=== PATIENT | male | born 1980 | race Caucasian/White ===

== ENCOUNTER 2024-04-30 17:39 | Emergency (ER) | payer BC, SELFPAY ==
--- NOTE | ~2024-04-30 | CT_ITS ---
CLINICAL HISTORY: R side flank pain, N V CT abdomen and pelvis without contrast Comparison: None Findings: No hydronephrosis. No right nephrolithiasis. Left nephrolithiasis is punctate. There is a 2 mm stone in the bladder. No consolidation at the lung bases. Unremarkable gallbladder. Hepatic steatosis. The other solid organs are normal. No bowel wall thickening or dilation. A normal appendix is identified. No aneurysm. Trace calcified atherosclerotic disease. No lymphadenopathy. No ascites. No acute fracture. 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 Impression: 2 mm stone in the bladder may have been recently passed. No hydronephrosis. This document has been electronically signed by: Veronika Melton MD on 04/30/2024 18:39:22
--- NOTE | 2024-04-30 17:40 | ED_ITS ---
HPI - General Adult General Chief complaint: Abdominal Pain Stated complaint: Pain on side Time Seen by Provider: 04/30/24 23:23 Related Data Previous Rx's ?Medication ?Instructions ?Recorded ketorolac 10 mg tablet 10 mg PO Q8H PRN pain #12 tabs 05/01/24 metformin 500 mg tablet 1,000 mg (2 x 500 mg) PO BID 1 05/01/24 month #120 tabs tamsulosin 0.4 mg capsule 0.4 mg PO DAILY #7 caps 05/01/24 Allergies Allergy/AdvReac Type Severity Reaction Status Date / Time No Known Allergies Allergy Verified 04/30/24 17:48 [No Known Allergies*] PMFSH Social History Social History Smoked in Last 30 Days: No Use of substances other than those prescribed or required for medical reasons: No Advance Directives: No Advance Directives Information Provided: No Do you have a plan to hurt others: No Plan Physical Exam ED Vital Signs: Vital Signs - 24 hr 04/30/24 21:42 05/01/24 01:01 05/01/24 01:20 Temperature 98.4 F 98.8 F Pulse Rate 69 75 75 Respiratory Rate 17 16 16 Blood Pressure 127/77 129/68 129/68 Pulse Oximetry 99 97 97 Oxygen Delivery Method Room Air Room Air Room Air BMI result Body Mass Index 26.5 Course Course Course Narrative: This is a Rapid Medical Exam performed in triage by Rere Yeboah PA-C. Full HPI, ROS and PE to be performed by primary ED provider. 43yo M presenting to the ED c/o sudden onset non-radiating right side pain x [employer] w/assoc emesis outside of ED. denies urinary sx, fever, chills PE: abdomen soft, nontender, no rash, no CVAT Plan: labs, UA, CTAP Medications Administered Discontinued Medications Generic Name Dose Route Start Last Admin Trade Name Freq PRN Reason Stop Dose Admin Insulin Human Lispro 5 unit 04/30/24 23:34 04/30/24 23:44 Insulin Lispro 100 Unit/Ml 3 Ml Vial SUBCUT 04/30/24 23:35 5 unit ONCE ONE Administration Ketorolac Tromethamine 60 mg 04/30/24 23:34 04/30/24 23:44 Ketorolac Tromethamine 60 Mg/2 Ml Vial IM 04/30/24 23:35 60 mg ONCE ONE Administration Tamsulosin HCl 0.4 mg 04/30/24 23:34 04/30/24 23:44 Tamsulosin Hcl 0.4 Mg Capsule PO 04/30/24 23:35 0.4 mg ONCE ONE Administration Medical Decision Making Lab Data 04/30/24 18:47 04/30/24 18:47 Labs: Lab Results 04/30/24 04/30/24 05/01/24 Range/Units 18:47 21:05 00:42 WBC 8.2 (4.8-10.8) X10*3/uL RBC 5.15 (4.60-5.80) X10*6/uL Hgb 15.9 (14.0-18.0) g/dl Hct 43.4 (42.0-52.0) % MCV 84.3 (80.0-98.0) fL MCH 30.9 (27.0-33.0) pg MCHC 36.6 H (31.0-36.0) g/dl RDW 11.8 (11.0-16.0) % Plt Count 282 (160-400) X10*3/uL MPV 10.1 (9.4-12.4) fL Immature Gran % (Auto) 0.4 (0.0-0.4) % Neut % (Auto) 64.0 (45-73) % Lymph % (Auto) 21.6 (20-40) % [place] % (Auto) 9.8 (2-11) % Eos % (Auto) 3.3 (0-4) % Baso % (Auto) 0.9 (0-2) % Lymph # (Auto) 1.8 (1.2-4.9) X10*3/uL [place] # (Auto) 0.8 (0.1-1.2) X10*3/uL Eos # (Auto) 0.3 (0.0-0.4) X10*3/uL Baso # (Auto) 0.1 (0.0-0.2) X10*3/uL Abs Immat Gran (auto) 0.03 (0.00-0.03) X10*3/uL Absolute Neuts (auto) 5.3 (2.0-8.3) x10*3/uL Absolute Nucleated RBC 0.000 (0.0-0.012) X10*3/uL Nucleated RBC % (auto) 0.0 (0.0-0.2) /100WBC PT 11.2 (10.9-12.4) SEC INR 1.0 (0.9-1.1) Sodium 135 (135-145) mmol/L Potassium 4.5 (3.3-5.1) mmol/L Chloride 106 (96-108) mmol/L Carbon Dioxide 18 L (22-29) mmol/L Anion Gap 16 (12-20) BUN 15 (9-16) mg/dL Creatinine 1.20 (0.5-1.4) mg/dL Estim Creat Clear Calc 81.1 Estimated GFR > 60 POC Glucose 367 H* 250 H (60-115) mg/dL Random Glucose 434 H* (60-115) mg/dL Estimat Average Glucose 220 mg/dL Hemoglobin A1c % 9.3 H (<6.0) % Calcium 10.1 (8.4-10.2) mg/dL Magnesium 2.1 (1.6-2.6) mg/dL Total Bilirubin 0.6 (0.0-1.0) mg/dL Direct Bilirubin 0.1 (0.0-0.5) mg/dL AST 94 H (5-37) U/L ALT 180 H (0-40) U/L Alkaline Phosphatase 270 H (39-117) U/L Total Protein 8.2 H (6.5-8.0) g/dL Albumin 4.2 (3.5-5.0) g/dL Lipase 21 (8-78) U/L Urine Color Yellow Urine Appearance Clear Urine pH 6.0 (5.0-9.0) Ur Specific [place] 1.015 (1.005-1.025) Urine Protein Negative (Neg-Trace) mg/dL Urine Glucose (UA) >=1000 H (Negative) mg/dL Urine Ketones Negative (Negative) mg/dL Urine Blood Small (1+) H (Negative) Urine Nitrite Negative (Negative) Ur Leukocyte Esterase Negative (Negative) Urine RBC 6-10 H (0-2) /HPF Urine WBC 0-5 (0-5) /HPF Ur Squamous Epith Cells 0-2 (0-2) /HPF Urine Bacteria None Seen (None Seen) Hyaline Casts 0-2 (0-2) /LPF Discharge Plan Discharge Clinical Impression: Kidney stone, Hyperglycemia Patient Disposition: Home, Self-Care Instructions: Kidney Stones (ED), Type 2 Diabetes in Adults: New Diagnosis (ED), Diabetic Hyperglycemia (ED) Additional Instructions: Please follow-up with your primary care physician tomorrow. Please make sure that they get records from [facility] especially your A1c. If you have any worsening or new symptoms, please return to the emergency room or call 911 Prescriptions: New ketorolac 10 mg tablet 10 mg PO Q8H PRN (Reason: pain) Qty: 12 0RF Rx Instructions: Do not use this medication with any other NSAIDs. tamsulosin 0.4 mg capsule 0.4 mg PO DAILY Qty: 7 0RF metformin 500 mg tablet 1,000 mg PO BID 30 Days Qty: 120 0RF Rx Instructions: For the 1st week, take 1 tablet b.i.d.. Then 2 tablets b.i.d. Referrals: Jay Amanda MD [Physician] - 05/09/24 Interventions: ED Discharge Assessment Last Done: 05/01/24 01:20 Discharge Date/Time: 05/01/24 01:21 Print Language: Citizen Of [place]
[2024-04-30 17:42] VITALS: BP 151/69; PULSE 80; RESP 16; TEMP 36.4; O2SAT 97; BMI 26.5
[2024-04-30 18:53] LABS: MANUAL DIFF FLAG NO
[2024-04-30 18:54] LABS: Basophils Absolute Auto 0.1 X10*3/uL (0.0-0.2); Basophils Percent Auto 0.9 % (0-2); Eosinophils Absolute Auto 0.3 X10*3/uL (0.0-0.4); Eosinophils Percent Auto 3.3 % (0-4); Hematocrit 43.4 % (42.0-52.0); Hemoglobin 15.9 g/dl (14.0-18.0); Imm Gran Abs Auto 0.03 X10*3/uL (0.00-0.03); Imm Gran Pct Auto 0.4 % (0.0-0.4); Lymphocytes Absolute Auto 1.8 X10*3/uL (1.2-4.9); Lymphocytes Percent Auto 21.6 % (20-40); Mean Corpuscular HGB Conc 36.6 g/dl (31.0-36.0); Mean Corpuscular Hemoglobin 30.9 pg (27.0-33.0); Mean Corpuscular Volume 84.3 fL (80.0-98.0); Mean Platelet Volume 10.1 fL (9.4-12.4); Monocytes Absolute Auto 0.8 X10*3/uL (0.1-1.2); Monocytes Percent Auto 9.8 % (2-11); Neutrophils Absolute Auto 5.3 x10*3/uL (2.0-8.3); Platelet Count 282 X10*3/uL (160-400); Red Blood Count 5.15 X10*6/uL (4.60-5.80); Red Cell Distribution Width 11.8 % (11.0-16.0); White Blood Count 8.2 X10*3/uL (4.8-10.8)
[2024-04-30 19:00] LABS: Appearance Urine Clear; Color Urine Yellow; Glucose Urine UA >=1000 mg/dL (Negative); Leukocyte Esterase Urine Negative (Negative); Nitrite Urine Negative (Negative); Prothrombin Time 11.2 SEC (10.9-12.4); Specific Gravity - Urine 1.015 (1.005-1.025); UMIC TRIGGER UACC YES; Urine Blood Small (1+) (Negative); Urine Ketones Negative (Negative); Urine Protein Negative (Neg-Trace)
[2024-04-30 19:05] LABS: Bacteria Urine None Seen (None Seen); Hyaline Casts Urine 0-2 /LPF (0-2); Squamous Epithelial Cell Urine 0-2 /HPF (0-2); WBC Urine 0-5 /HPF (0-5)
[2024-04-30 19:16] LABS: Alanine Aminotransferase 180 U/L (0-40); Albumin Level 4.2 g/dL (3.5-5.0); Alkaline Phosphatase 270 U/L (39-117); Anion Gap 16 (12-20); Aspartate Amino Transferase 94 U/L (5-37); Bilirubin Direct 0.1 mg/dL (0.0-0.5); Bilirubin Total 0.6 mg/dL (0.0-1.0); Blood Urea Nitrogen 15 mg/dL (9-16); Calcium 10.1 mg/dL (8.4-10.2); Carbon Dioxide 18 mmol/L (22-29); Chloride 106 mmol/L (96-108); Creatinine Clr Calc Pharmacy 81.1; Estimated Glomerular Filt Rate > 60; Glucose Random 434 mg/dL (60-115); Lipase 21 U/L (8-78); Magnesium 2.1 mg/dL (1.6-2.6); Potassium 4.5 mmol/L (3.3-5.1); Sodium 135 mmol/L (135-145); Total Protein 8.2 g/dL (6.5-8.0)
[2024-04-30 21:09] LABS: Glucose, Whole Blood 367 mg/dL (60-115)
[2024-04-30 21:42] VITALS: BP 127/77; PULSE 69; RESP 17; TEMP 36.9; O2SAT 99
--- NOTE | 2024-04-30 21:43 | PC.NURSE ---
pt a&ox4, respirations even and unlabored. pt reporting sudden onset of right sided abdominal pain starting today, pt reports the pain is intermittent but when the pain occurs it is 10/10. pt reports he is nauseous but denies n/v. pt denies any urinary symptoms at this time, vss.
--- NOTE | 2024-04-30 23:38 | ED.ABDPAIN ---
HPI - Abdominal Pain General Chief Complaint: Abdominal Pain Stated Complaint: Pain on side Time Seen by Provider: 04/30/24 23:23 Source: patient and family Mode of arrival: ambulatory Limitations: no limitations History of Present Illness ED Provider: Dr. Vandana Gray HPI narrative: Patient comes to the emergency room complaining of right-sided flank pain. Patient states that the pain started very abruptly approximately 6 hours ago. Patient states that the pain was intolerable, then suddenly stop hurting. Patient states that he has had on of pain for the last few hours. At this time, he has mild discomfort on the right flank but not unbearable as it was before. Patient denies hematuria or dysuria, denies fever chills. Related Data Previous Rx's ?Medication ?Instructions ?Recorded ketorolac 10 mg tablet 10 mg PO Q8H PRN pain #12 tabs 05/01/24 metformin 500 mg tablet 1,000 mg (2 x 500 mg) PO BID 1 05/01/24 month #120 tabs tamsulosin 0.4 mg capsule 0.4 mg PO DAILY #7 caps 05/01/24 Allergies Allergy/AdvReac Type Severity Reaction Status Date / Time No Known Allergies Allergy Verified 04/30/24 17:48 [No Known Allergies*] Review of Systems Review of Systems Constitutional : No Weight loss, No Fever, No Chills, No Night Sweats, No Fatigue, No Malaise ENT/Mouth : No Hearing loss, No Ear Pain, No Nasal Congestion, No Sinus Pain, No Hoarseness, No sore throat, No Rhinorrhea, No Swallowing Difficulty Eyes: No Eye Pain, No Swelling, No Redness, No Foreign Body, No Discharge, No Vision Changes Cardiovascular : No Chest Pain, No SOB, No Dyspnea on Exertion, No Orthopnea, No Edema, No Palpitations Respiratory : No Cough, No Sputum, No Wheezing, No Smoke Exposure, No Dyspnea Gastrointestinal : Complaining of nausea, No Vomiting, No Diarrhea, No Constipation, complaining of right-sided flank pain Genitourinary : no irregular bleeding, No Dysuria, No Urinary Frequency, No Hematuria, No Urinary Incontinence, No Urgency, complaining of right-sided flank pain, No Urinary Flow Changes, No Hesitancy Musculoskeletal : No joint pain, No Myalgias, No Joint Swelling Skin : No Skin Lesions, No rash Neuro : No Weakness, No Numbness, No Paresthesias, No Loss of Consciousness, No Dizziness, No Headache Psych : No Anxiety/Panic, No Depression, No SI/HI/AH/VH, No Social Issues, Heme/Lymph: No Bruising, No Bleeding,No Lymphadenopathy Endocrine : No Polyuria, No Polydipsia, No Temperature Intolerance [facility] Social History Social History Smoked in Last 30 Days: No Use of substances other than those prescribed or required for medical reasons: No Advance Directives: No Advance Directives Information Provided: No Do you have a plan to hurt others: No Plan Physical Exam ED Vital Signs: Vital Signs - 24 hr 04/30/24 17:42 04/30/24 21:42 Temperature 97.5 F 98.4 F Pulse Rate 80 69 Respiratory Rate 16 17 Blood Pressure 151/69 H 127/77 Pulse Oximetry 97 99 Oxygen Delivery Method Room Air Room Air BMI result Body Mass Index 26.5 Const Other: Appearance: Alert. Oriented X3. No acute distress. Eyes: Pupils equal, round and reactive to light. ENT: Pharynx normal. Neck: Normal inspection. Neck supple. No lymph nodes noted. No crepitus CVS: Normal heart rate and rhythm. Pulses normal. Normal S1 and S2 Respiratory: No respiratory distress. Breath sounds normal. No Wheezing. No rales Abdomen: Soft and nontender. No rigidity. No distention. Discomfort over the right flank, no obvious CVA tenderness Skin: Skin warm and dry. Normal skin color. Normal skin turgor. Extremities: No lower extremity edema. No Lacerations. No Rash Neuro: Oriented X 3. No motor deficit. No sensory deficit. Moving all extremities. No slurred speech. CN 2 through 12 grossly intact Psych: calm, cooperative, normal affect Medical Decision Making Medical Decision Making MDM Narrative: My interpretation of labs: Patient's hematology within normal limits:, normal INR, normal electrolytes. Patient's blood glucose 434. Patient's CT scan shows a 2 mm stone in the bladder. I discussed with the patient that he already passed a kidney stone. Patient states that he feels much better, still having a bit of residual pain. Patient was given IM ketorolac, tamsulosin. I discussed with the patient that his glucose is elevated. Patient states that to his knowledge this has never happened. Patient has never been diagnosed with diabetes. Patient's A1c pending. Patient will follow-up with his primary care physician. Patient was given in the ED 5 units of subcu insulin. Patient requested to avoid IV medications because he is afraid of needles/iv Patient agreeable to take metformin, patient will follow-up with his PCP Differential Diagnosis Differential Diagnoses: The differential diagnosis associated with the presentation includes Admission/Observation Consideration of admission/observation: Escalation of care including admission/observation considered (Given patient's new onset symptoms, observation was considered) Lab Data MDM Lab Attestation statement: I reviewed the patient's lab results. 04/30/24 18:47 04/30/24 18:47 Labs: Lab Results 04/30/24 04/30/24 05/01/24 Range/Units 18:47 21:05 00:42 WBC 8.2 (4.8-10.8) X10*3/uL RBC 5.15 (4.60-5.80) X10*6/uL Hgb 15.9 (14.0-18.0) g/dl Hct 43.4 (42.0-52.0) % MCV 84.3 (80.0-98.0) fL MCH 30.9 (27.0-33.0) pg MCHC 36.6 H (31.0-36.0) g/dl RDW 11.8 (11.0-16.0) % Plt Count 282 (160-400) X10*3/uL MPV 10.1 (9.4-12.4) fL Immature Gran % (Auto) 0.4 (0.0-0.4) % Neut % (Auto) 64.0 (45-73) % Lymph % (Auto) 21.6 (20-40) % [place] % (Auto) 9.8 (2-11) % Eos % (Auto) 3.3 (0-4) % Baso % (Auto) 0.9 (0-2) % Lymph # (Auto) 1.8 (1.2-4.9) X10*3/uL [place] # (Auto) 0.8 (0.1-1.2) X10*3/uL Eos # (Auto) 0.3 (0.0-0.4) X10*3/uL Baso # (Auto) 0.1 (0.0-0.2) X10*3/uL Abs Immat Gran (auto) 0.03 (0.00-0.03) X10*3/uL Absolute Neuts (auto) 5.3 (2.0-8.3) x10*3/uL Absolute Nucleated RBC 0.000 (0.0-0.012) X10*3/uL Nucleated RBC % (auto) 0.0 (0.0-0.2) /100WBC PT 11.2 (10.9-12.4) SEC INR 1.0 (0.9-1.1) Sodium 135 (135-145) mmol/L Potassium 4.5 (3.3-5.1) mmol/L Chloride 106 (96-108) mmol/L Carbon Dioxide 18 L (22-29) mmol/L Anion Gap 16 (12-20) BUN 15 (9-16) mg/dL Creatinine 1.20 (0.5-1.4) mg/dL Estim Creat Clear Calc 81.1 Estimated GFR > 60 POC Glucose 367 H* 250 H (60-115) mg/dL Random Glucose 434 H* (60-115) mg/dL Calcium 10.1 (8.4-10.2) mg/dL Magnesium 2.1 (1.6-2.6) mg/dL Total Bilirubin 0.6 (0.0-1.0) mg/dL Direct Bilirubin 0.1 (0.0-0.5) mg/dL AST 94 H (5-37) U/L ALT 180 H (0-40) U/L Alkaline Phosphatase 270 H (39-117) U/L Total Protein 8.2 H (6.5-8.0) g/dL Albumin 4.2 (3.5-5.0) g/dL Lipase 21 (8-78) U/L Urine Color Yellow Urine Appearance Clear Urine pH 6.0 (5.0-9.0) Ur Specific [place] 1.015 (1.005-1.025) Urine Protein Negative (Neg-Trace) mg/dL Urine Glucose (UA) >=1000 H (Negative) mg/dL Urine Ketones Negative (Negative) mg/dL Urine Blood Small (1+) H (Negative) Urine Nitrite Negative (Negative) Ur Leukocyte Esterase Negative (Negative) Urine RBC 6-10 H (0-2) /HPF Urine WBC 0-5 (0-5) /HPF Ur Squamous Epith Cells 0-2 (0-2) /HPF Urine Bacteria None Seen (None Seen) Hyaline Casts 0-2 (0-2) /LPF Independent Interpretation I performed an independent interpretation of an: CT Scan Interpretation: Findings: No hydronephrosis. No right nephrolithiasis. Left nephrolithiasis is punctate. There is a 2 mm stone in the bladder. No consolidation at the lung bases. Unremarkable gallbladder. Hepatic steatosis. The other solid organs are normal. No bowel wall thickening or dilation. A normal appendix is identified. No aneurysm. Trace calcified atherosclerotic disease. No lymphadenopathy. No ascites. No acute fracture. 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 Impression: 2 mm stone in the bladder may have been recently passed. No hydronephrosis. Radiology Impression Discussion of test interpretation with radiology: I have reviewed the radiologist's reading. Medications Administered Discontinued Medications Generic Name Dose Route Start Last Admin Trade Name Freq PRN Reason Stop Dose Admin Insulin Human Lispro 5 unit 04/30/24 23:34 04/30/24 23:44 Insulin Lispro 100 Unit/Ml 3 Ml Vial SUBCUT 04/30/24 23:35 5 unit ONCE ONE Administration Ketorolac Tromethamine 60 mg 04/30/24 23:34 04/30/24 23:44 Ketorolac Tromethamine 60 Mg/2 Ml Vial IM 04/30/24 23:35 60 mg ONCE ONE Administration Tamsulosin HCl 0.4 mg 04/30/24 23:34 04/30/24 23:44 Tamsulosin Hcl 0.4 Mg Capsule PO 04/30/24 23:35 0.4 mg ONCE ONE Administration Discharge Plan Discharge Clinical Impression: Kidney stone, Hyperglycemia Patient Disposition: Home, Self-Care Instructions: Kidney Stones (ED), Diabetic Hyperglycemia (ED), Type 2 Diabetes in Adults: New Diagnosis (ED) Additional Instructions: Please follow-up with your primary care physician tomorrow. Please make sure that they get records from [facility] especially your A1c. If you have any worsening or new symptoms, please return to the emergency room or call 911 Prescriptions: New ketorolac 10 mg tablet 10 mg PO Q8H PRN (Reason: pain) Qty: 12 0RF Rx Instructions: Do not use this medication with any other NSAIDs. tamsulosin 0.4 mg capsule 0.4 mg PO DAILY Qty: 7 0RF metformin 500 mg tablet 1,000 mg PO BID 30 Days Qty: 120 0RF Rx Instructions: For the 1st week, take 1 tablet b.i.d.. Then 2 tablets b.i.d. Referrals: Jay Amanda MD [Physician] - 05/09/24 Print Language: [place]
[2024-04-30] MEDS: Insulin Lispro 100 UNIT/ML 3 ML VIAL SUBCUT (23:44)
[2024-04-30] MEDS: Tamsulosin HCL 0.4 MG CAPSULE PO (23:44)
[2024-04-30] MEDS: Ketorolac Tromethamine 60 MG/2 ML VIAL IM (23:44)
[2024-05-01 00:46] LABS: Glucose, Whole Blood 250 mg/dL (60-115)
[2024-05-01 01:01] VITALS: BP 129/68; PULSE 75; RESP 16; O2SAT 97
[2024-05-01 01:20] VITALS: BP 129/68; PULSE 75; RESP 16; TEMP 37.1; O2SAT 97
[2024-05-01 05:17] LABS: Estimated Average Glucose 220 mg/dL; Hemoglobin A1C 325.4754 umol/L; Hemoglobin A1c % 9.3 % (<6.0); Total Hemoglobin (HGBA1C) 4145.7996 umol/L
== END 2024-05-01 01:21 | disposition home or self-care (01) ==
PROVIDERS: Physician Assistant; Emergency Provider Emergency Medicine
DX: N20.0 Calculus of kidney (principal); E11.65 Type 2 diabetes mellitus with hyperglycemia; R10.9 Unspecified abdominal pain
CPT/HCPCS: 36415; 74176; 80048; 80076; 81001; 81003; 82947; 83036; 83690; 83735; 85025; 85610; 96372; 99284; 99285; J1885

== ENCOUNTER → 2024-04-30 17:41 | Outpatient (BNV) | payer BC, SELFPAY | PROVIDERS: Visit Provider Radiology Diagnostic Radiology | DX: N20.0 Calculus of kidney (principal) | CPT/HCPCS: 74176 ==